=== PATIENT | male | born 1940 | race Caucasian/White ===

== ENCOUNTER → 2016-11-23 | Outpatient (CLI) | payer MEDICARE, BC ==
[~2016-11-23] MED LIST: ASPIRIN 32325 MG/TAB PO; ASPIRIN E.C. 8181 MG PO; ELIQUIS 5MG PO; GLUCOPHAGE500 MG/TAB PO; LIPITOR 40MG TA40 MG PO; LOPRESSOR 225 MG/TAB PO; OCUVITE1 TA1 PO; TENORMIN 2525 MG/TAB PO; THE MEDICINE S200 M2 PO; TRILIPIX 135MG PO; ZESTRIL40 MG PO; ZETIA 10MG TAB10 MG PO; ZOCOR 80MG80 MG PO
== END ==
LOC: COL.VAS 12:32
DX: I08.0 Rheumatic disorders of both mitral and aortic valves (principal); I48.91 Unspecified atrial fibrillation

== ENCOUNTER 2016-12-10 10:21 | Day surgery (SDC) | payer MEDICARE, BC ==
[2016-12-10] VITALS (8 sets, daily range): BP systolic 109–146; BP diastolic 68–98; PULSE 92–120; TEMP 98.1
[~2016-12-10] VITALS: Ht 177.8 cm; Wt 78.2 kg
[~2016-12-10 10:21] MED LIST changes: -ELIQUIS 5MG PO; -GLUCOPHAGE500 MG/TAB PO; -LOPRESSOR 225 MG/TAB PO; -OCUVITE1 TA1 PO; -THE MEDICINE S200 M2 PO
[2016-12-10] MEDS ORDERED: THE MEDICINE S200 M2 PO (11:04)
[2016-12-10] MEDS ORDERED: OCUVITE1 TA1 PO (11:04)
[2016-12-10] MEDS ORDERED: LIPITOR 40MG TA40 MG PO (11:05)
[2016-12-10] MEDS ORDERED: GLUCOPHAGE500 MG/TAB PO (11:06)
[2016-12-10 11:09] LABS: HEMATOCRIT 37.1 % (42.0-52.0); HEMOGLOBIN 12.2 g/dl (13.5-18.0); MEAN CELL VOLUME 94 fl (80.0-100.0); MEAN CORPUSCULAR HEMOGLOBIN 31 pg (27.0-31.0); MEAN CORPUSCULAR HGB CONC 33 g/dl (33.0-37.0); MEAN PLATELET VOLUME 9.6 fl (7.4-10.4); PLATELET COUNT 251 K/mm3 (130-400); RED BLOOD COUNT 3.94 M/mm3 (4.20-5.60); REDCELL DISTRIBUTION WIDTH-CV 14.2 % (11.5-14.5); WHITE BLOOD COUNT 6.6 K/mm3 (4.8-10.8)
[2016-12-10] MEDS ORDERED: LOPRESSOR 225 MG/TAB PO (11:10)
[2016-12-10] MEDS ORDERED: ELIQUIS 5MG PO (11:11)
[2016-12-10 11:14] LABS: INR 1.4 (0.8-3.0); PROTHROMBIN TIME 15.2 SECONDS (9.7-12.8)
[2016-12-10 11:23] LABS: CALCIUM 9.4 mg/dL (8.4-10.2); CREATININE, serum 1.11 mg/dL (0.66-1.25); POTASSIUM 4.4 mmol/L (3.4-5.0)
== END 2016-12-10 14:28 | disposition home or self-care (01) ==
LOC: COL.CAR 10:21
PROVIDERS: Internal Medicine Cardiovascular Disease
DX: I08.3 Combined rheumatic disorders of mitral, aortic and tricuspid valves (principal); I48.0 Paroxysmal atrial fibrillation; E11.9 Type 2 diabetes mellitus without complications; E78.5 Hyperlipidemia, unspecified; I25.2 Old myocardial infarction; I10 Essential (primary) hypertension; Q21.1 Atrial septal defect; I25.10 Atherosclerotic heart disease of native coronary artery without angina pectoris; Z95.1 Presence of aortocoronary bypass graft; Z79.01 Long term (current) use of anticoagulants; Z87.891 Personal history of nicotine dependence; Z82.49 Family history of ischemic heart disease and other diseases of the circulatory system; Z79.84 Long term (current) use of oral hypoglycemic drugs
CPT/HCPCS: J2250; J3010

== ENCOUNTER 2019-05-01 09:30 | Outpatient (CLI) | payer MEDICARE, BC ==
[2019-05-01] VITALS (7 sets, daily range): BP systolic 125–138; BP diastolic 71–98; PULSE 64–97; TEMP 97.1
[~2019-05-01] VITALS: Ht 177.8 cm; Wt 82.2 kg
[~2019-05-01 09:30] MED LIST changes: +BETAPACE 80MG80 MG PO; +ELIQUIS 5MG PO; +GLUCOPHAGE500 MG/TAB PO; +LOPRESSOR 225 MG/TAB PO; +OCUVITE1 TA1 PO; +THE MEDICINE S200 M2 PO
[2019-05-01] MEDS ORDERED: NORVASC2.5 MG PO (09:57)
[2019-05-01] MEDS ORDERED: COUMADIN 77.5 MG/TAB PO (09:59)
[2019-05-01] MEDS ORDERED: COUMADIN 5MG5 MG/TAB PO (10:02)
[2019-05-01 10:08] LABS: HEMOGLOBIN 11.9 g/dl (13.5-18.0); MEAN CELL VOLUME 92 fl (80.0-100.0); MEAN CORPUSCULAR HEMOGLOBIN 30 pg (27.0-31.0); MEAN CORPUSCULAR HGB CONC 33 g/dl (33.0-37.0); MEAN PLATELET VOLUME 9.5 fl (7.4-10.4); PLATELET COUNT 304 K/mm3 (130-400); RED BLOOD COUNT 3.95 M/mm3 (4.20-5.60); REDCELL DISTRIBUTION WIDTH-CV 14.1 % (11.5-14.5)
[2019-05-01 10:11] LABS: HEMATOCRIT 36.4 % (42.0-52.0)
[2019-05-01 10:16] LABS: INR 2.7 (0.8-3.0); PROTHROMBIN TIME 32.1 SECONDS (9.7-12.8)
[2019-05-01 10:21] LABS: CALCIUM 9.3 mg/dL (8.4-10.2); CREATININE, serum 0.96 (0.66-1.25); POTASSIUM 4.5 mmol/L (3.4-5.0)
[2019-05-01] MEDS ORDERED: MULTAQ400 MG PO (12:36)
--- NOTE | 2019-05-01 13:51 | NUR ---
Discharge instructions given to pt.Pt verbalizes understanding.INT removed,catheter tip intact.Pt escorted out via wheelchair by this nurse.
== END 2019-05-01 13:56 | disposition home or self-care (01) ==
LOC: COL.RAD 09:30
PROVIDERS: Internal Medicine Cardiovascular Disease
DX: I48.19 Other persistent atrial fibrillation (principal)
CPT/HCPCS: J2704; J3010

== ENCOUNTER 2019-05-10 09:58 | Inpatient (IN) | payer MEDICARE, BC ==
[~2019-05-10] VITALS: Ht 177.8 cm; Wt 80.0 kg
[~2019-05-10 09:58] MED LIST changes: +COUMADIN 5MG5 MG/TAB PO; +COUMADIN 77.5 MG/TAB PO; +MULTAQ400 MG PO; +NORVASC2.5 MG PO
[2019-05-15 09:36] VITALS: BP 156/84; PULSE 74; TEMP 97.8
--- NOTE | 2019-05-15 10:00 | NUR ---
Patient to room 317, walked independently to room with admit staff. Oriented patient to room, bed and call light. A&Ox4. No further needs expressed from patient. Call light within reach
[2019-05-15 10:27] LABS: BASO % 0.6 % (0.0-2.0); EOS # 0.1 (0.0-0.7); EOS % 1.2 % (0-4.0); GRAN # 4.8 (1.4-6.5); GRAN % 68.5 % (42.2-75.2); HEMATOCRIT 37.1 % (42.0-52.0); LYMPH # 1.3 (1.2-3.4); LYMPH % 18.2 % (20.0-51.0); MEAN CELL VOLUME 92 fl (80.0-100.0); MEAN CORPUSCULAR HEMOGLOBIN 30 pg (27.0-31.0); MEAN CORPUSCULAR HGB CONC 32 g/dl (33.0-37.0); MEAN PLATELET VOLUME 9.7 fl (7.4-10.4); MONO # 0.8 (0.1-0.6); MONO % 11.1 % (1.7-9.3); PLATELET COUNT 284 K/mm3 (130-400); RED BLOOD COUNT 4.02 M/mm3 (4.20-5.60); REDCELL DISTRIBUTION WIDTH-CV 14.1 % (11.5-14.5)
[2019-05-15 10:40] LABS: ALBUMIN 4.4 gm/dL (3.5-5.0); BILIRUBIN,TOTAL 0.5 mg/dL (0.0-1.0); CALCIUM 9.4 mg/dL (8.4-10.2); CREATININE, serum 1.04 (0.66-1.25); POTASSIUM 4.5 mmol/L (3.4-5.0); TOTAL PROTEIN 7.7 gm/dL (6.4-8.2)
[2019-05-15 10:45] LABS: INR 2.9 (0.8-3.0); PROTHROMBIN TIME 34.7 SECONDS (9.7-12.8)
[2019-05-15 11:32] VITALS: BP 127/62; PULSE 52; TEMP 98.4
[2019-05-15 16:35] VITALS: BP 143/73; PULSE 52; TEMP 97.8
--- NOTE | 2019-05-15 18:04 | NUR ---
Report given to Belem MCCULLOUGH
[2019-05-15 19:35] VITALS: BP 149/66; PULSE 54; TEMP 98.7
--- NOTE | 2019-05-15 20:30 | NUR ---
Initial shift assessment done- Tele on, denies any pain/SOB, VSS, UP ad stephanie in room- no requests-
--- NOTE | 2019-05-15 21:23 | NUR ---
Notified JAMEL Agarwal of low HR 48 via manual palipation.
--- NOTE | 2019-05-15 23:00 | NUR ---
Tele calling- states heart rate 41-43/min, pt assymptomatic- sleeping, Dr. Burdick called- tele parameters changed from 45 to 40/min
[2019-05-15 23:28] VITALS: BP 155/74; PULSE 49; TEMP 98.4
[2019-05-16 03:44] VITALS: BP 152/66; PULSE 50; TEMP 98
--- NOTE | 2019-05-16 06:39 | NUR ---
Quiet night- Tele on,, heart rate 40-45 most of the night- denies any pain/dizziness/SOB, VSS
[2019-05-16 06:49] LABS: BASO % 0.7 % (0.0-2.0); EOS # 0.1 (0.0-0.7); EOS % 2.2 % (0-4.0); GRAN # 3.7 (1.4-6.5); GRAN % 61.7 % (42.2-75.2); HEMOGLOBIN 11.7 g/dl (13.5-18.0); LYMPH # 1.3 (1.2-3.4); LYMPH % 21.7 % (20.0-51.0); MEAN CELL VOLUME 94 fl (80.0-100.0); MEAN CORPUSCULAR HEMOGLOBIN 30 pg (27.0-31.0); MEAN CORPUSCULAR HGB CONC 32 g/dl (33.0-37.0); MEAN PLATELET VOLUME 10.1 fl (7.4-10.4); MONO # 0.8 (0.1-0.6); MONO % 13.4 % (1.7-9.3); PLATELET COUNT 274 K/mm3 (130-400); REDCELL DISTRIBUTION WIDTH-CV 14.2 % (11.5-14.5)
[2019-05-16 06:51] LABS: HEMATOCRIT 36.5 % (42.0-52.0)
[2019-05-16 06:56] LABS: CALCIUM 9.4 mg/dL (8.4-10.2); CREATININE, serum 1.06 (0.66-1.25); INR 2.4 (0.8-3.0); POTASSIUM 4.5 mmol/L (3.4-5.0); PROTHROMBIN TIME 29.3 SECONDS (9.7-12.8)
--- NOTE | 2019-05-16 09:11 | NUR ---
Patient had cup of coffee with breakfast today. Called Dr. Simon, will do PFT tomorrow morning. Patient given instruction. Quoc Colon, SUPERVISOR POWDERED SUGAR
[2019-05-16 09:25] VITALS: BP 163/65; PULSE 58; TEMP 98.3
[2019-05-16 12:39] VITALS: BP 153/60; PULSE 50; TEMP 97.8
--- NOTE | 2019-05-16 14:23 | NUR ---
SW met with the patient to discuss discharge plan. The patient lives in [place] with his , Chaya (ph#[phone]). He reports independence with ADLs and has a CPAP. The patient's PCP is Dr. Chey Ramirez and he receives his medications at [facility]. He reports no difficulties obtaining his meds. The patient does not have advanced directives in EMR, but he states that he thinks that he has them completed and that his son, Ciaran, would be his DPOA-HC. The patient plans to return home with his upon discharge. No additional needs at this time.
--- NOTE | 2019-05-16 17:17 | NUR ---
Pt doing well, ambulating halls. Pt denies pain at this time. Pt states he hasn't had a BM today, he did have one yesterday. Requested MOM. Administered per MAR. No other concerns at this time.
[2019-05-16 17:30] VITALS: BP 133/63; PULSE 49; TEMP 97.9
[2019-05-16 20:00] VITALS: BP 137/61; PULSE 59; TEMP 98.3
--- NOTE | 2019-05-16 21:00 | NUR ---
Patient assessed at this time. Alert and oriented x 4, and able to make needs known. Denies ahving pain and discomfort. Peripheral IV to rigth forearm flushed. Site without redness, warmth, swelling, and pain. Denies SOB and dypsnea. LS CTA in upper lobes, diminished in lower lobes. HR-bradycardia, murmur present. Telmetry: sinus jin. Capillary refill less than 3 seconds. Non-tenting skin turgor. BSAx4. Abdomen soft and non-tender. No edema. Voices no questions, needs, or concerns at this time. Resting in bed with call light within reach.
--- NOTE | 2019-05-16 22:10 | NUR ---
Telemetry called and stated that HR was sustaining around 35. Called Dr. Silvestre, on-call tip cutter. Patient asymptomatic. New order to continue to monitor. Asked if he still wanted to be notified if HR was less than 40 per current orders. New order to call if less than 30. Updated order.
[2019-05-17] VITALS (7 sets, daily range): BP systolic 126–164; BP diastolic 50–67; PULSE 42–106; TEMP 97.7–98.1
--- NOTE | 2019-05-17 06:40 | NUR ---
Patient has been resting in bed with CPAP. Has denied having pain and discomfort. Voices no questions, needs, or concerns at this time. Call light is within reach.
[2019-05-17 06:44] LABS: BASO % 0.7 % (0.0-2.0); EOS # 0.2 (0.0-0.7); EOS % 2.6 % (0-4.0); GRAN # 3.6 (1.4-6.5); GRAN % 62.2 % (42.2-75.2); HEMOGLOBIN 11.5 g/dl (13.5-18.0); LYMPH # 1.3 (1.2-3.4); LYMPH % 21.9 % (20.0-51.0); MEAN CELL VOLUME 92 fl (80.0-100.0); MEAN CORPUSCULAR HEMOGLOBIN 30 pg (27.0-31.0); MEAN CORPUSCULAR HGB CONC 32 g/dl (33.0-37.0); MEAN PLATELET VOLUME 10.1 fl (7.4-10.4); MONO # 0.7 (0.1-0.6); MONO % 12.3 % (1.7-9.3); PLATELET COUNT 255 K/mm3 (130-400); RED BLOOD COUNT 3.88 M/mm3 (4.20-5.60); REDCELL DISTRIBUTION WIDTH-CV 14.2 % (11.5-14.5)
[2019-05-17 06:57] LABS: INR 2.3 (0.8-3.0); PROTHROMBIN TIME 27.7 SECONDS (9.7-12.8)
[2019-05-17 06:59] LABS: CALCIUM 9.2 mg/dL (8.4-10.2); CREATININE, serum 1.06 (0.66-1.25); MAGNESIUM 2.1 mg/dL (1.6-2.3); POTASSIUM 4.8 mmol/L (3.4-5.0)
[2019-05-17 07:06] LABS: HEMATOCRIT 35.8 % (42.0-52.0)
--- NOTE | 2019-05-17 07:31 | NUR ---
patient off the floor for PFT's
--- NOTE | 2019-05-17 09:58 | NUR ---
Assessment completed, alert/oriented, vital signs stable, denies chest pain or discomfort, heart regular/ Sinus jin on tele, lungs CTA/ no resp.difficulty, patient has been down to cardiopulmonary for PFT's this morning, a.m meds given, sitting up eating breakfast and denies other needs at this time
--- NOTE | 2019-05-17 21:20 | NUR ---
Pt presents sitting in bedside chair with a friend present. Pt is A&Ox4, laughing and joking with this financial writer. Pt presents with no s/s of distress noted. Pt is knowledgable of how to use call light and has a beverage on his bedside table. Will continue to monitor.
--- NOTE | 2019-05-17 23:50 | NUR ---
Pt noted to be wearing his CPAP while resting in bed with eyes closed
[2019-05-18] VITALS (7 sets, daily range): BP systolic 121–153; BP diastolic 56–62; PULSE 42–100; TEMP 97.8–98.6
--- NOTE | 2019-05-18 00:10 | NUR ---
Pt resting in bed and opens his eyes as this television script writer enter the room. Pt is asymptomatic with bradycardia and no s/s of distress noted.
--- NOTE | 2019-05-18 05:51 | NUR ---
Pt has remained in bed with his cpap in place. When this investment underwriter enters room Pt opens eyes and appropriately answers questions. Pt denies pain or discomfort and presents with no s/s of distress noted. Call light is within reach and bedside table is at bedside and has reading materials and beverage within reach. Will continue to monitor.
[2019-05-18 06:50] LABS: BASO % 0.5 % (0.0-2.0); EOS # 0.1 (0.0-0.7); EOS % 2.2 % (0-4.0); GRAN # 3.9 (1.4-6.5); GRAN % 63.1 % (42.2-75.2); HEMATOCRIT 36.8 % (42.0-52.0); HEMOGLOBIN 11.9 g/dl (13.5-18.0); LYMPH # 1.4 (1.2-3.4); LYMPH % 22.3 % (20.0-51.0); MEAN CELL VOLUME 92 fl (80.0-100.0); MEAN CORPUSCULAR HEMOGLOBIN 30 pg (27.0-31.0); MEAN CORPUSCULAR HGB CONC 32 g/dl (33.0-37.0); MEAN PLATELET VOLUME 10.1 fl (7.4-10.4); MONO # 0.7 (0.1-0.6); MONO % 11.6 % (1.7-9.3); PLATELET COUNT 280 K/mm3 (130-400); REDCELL DISTRIBUTION WIDTH-CV 14.2 % (11.5-14.5)
[2019-05-18 06:55] LABS: INR 2.5 (0.8-3.0); PROTHROMBIN TIME 30.6 SECONDS (9.7-12.8)
[2019-05-18 07:07] LABS: CALCIUM 9.5 mg/dL (8.4-10.2); CREATININE, serum 1.18 (0.66-1.25); POTASSIUM 4.7 mmol/L (3.4-5.0)
--- NOTE | 2019-05-18 08:54 | NUR ---
NURSE IN TO ASSESS PATIENT. DENIES SHORTNESS OF BREATH, DIZZINESS, OR NUMBNESS/TINGLING. DENIES ANY NEASUEA/VOMITING. SITTING IN CHAIR AT THIS TIME WATCHING [employer] VIDEO AUTION. BREATHING AT EASE. DENIES ANY ABDOMENAL DISTENTION OR PAIN. VOIDING WITHOUT DIFFICULTY. INDEPENDENT IN ROOM AND DOES HYGIENE ESSENTIALS BY SELF. MURMUR PRESENT, RUNNING SINUS BRADYCARDIA AT THIS TIME IN THE 50'S. S1 & S2 AUDIBLE. LUNG SOUNDS CLEAR ON INSPIRATION/EXPIRATION IN ALL CALIX.
--- NOTE | 2019-05-18 10:38 | NUR ---
Tele called about 5beat run of Vtach in pt about 30 min ago. Raw Products Director notified, will be up to see pt. Pt is sitting in recliner, asymptomatic, visiting with family/friends at this time. No other concerns noted.
--- NOTE | 2019-05-18 11:50 | NUR ---
First visit from the loss prevention specialist. No needs right now.
--- NOTE | 2019-05-18 13:58 | NUR ---
The patient is to tentatively discharge back home with his tomorrow, 05/19. SW presented and explained the IM form to the patient. The patient verbalized understanding, signed, and he was provided a copy. No additional needs at this time.
--- NOTE | 2019-05-18 16:10 | NUR ---
PATIENT UP WALKING HALLS AT THIS TIME. TOOK A SHOWER INDEPENDENTLY EARLIER TODAY AND DID ALL HIS HYGIENE MEASURES. NO OTHER CHANGES BESIDES HIS AMIODARNE WAS SWITCHED TO BID. DENIES ANY SHORTNESS OF BREATH, DIZZINESS, NAUSEA, OR VOMITING. SEVERAL VISITORS HAVE BEEN IN TO VISIT PATIENT TODAY. DOCTOR TALKED ABOUT DISCHARGE ON 05-19-19 IF NOTHING NEW ARISES. PATIENT IS DOING VERY WELL.
[2019-05-19 01:02] VITALS: BP 134/64; PULSE 43; TEMP 98
--- NOTE | 2019-05-19 02:03 | NUR ---
Pt report received at shift change with meet and greet performed. Pt is in good spirits with no complaints of pain or discomfort. Pt denies needs/wants at this time. Pt states that he is going to ambulate down the [place]dez for exercise and has been noted to do so periodically throughout the shift. Pt is knowledgeable of how to use call light and has been noted to be watching tv or reading during the shift. Pt remains in stable condition at this time with no s/s of distress noted. Will continue to monitor.
--- NOTE | 2019-05-19 02:32 | NUR ---
Pt resting in bed with CPAP on and eyes closed with no s/s of distres noted.
[2019-05-19 05:13] VITALS: BP 154/62; PULSE 49; TEMP 98.2
[2019-05-19 06:21] LABS: BASO # 0.1 (0.0-0.2); BASO % 0.7 % (0.0-2.0); EOS # 0.2 (0.0-0.7); EOS % 2.7 % (0-4.0); GRAN # 4.2 (1.4-6.5); GRAN % 59.6 % (42.2-75.2); HEMATOCRIT 38.3 % (42.0-52.0); HEMOGLOBIN 12.4 g/dl (13.5-18.0); LYMPH # 1.7 (1.2-3.4); MEAN CELL VOLUME 93 fl (80.0-100.0); MEAN CORPUSCULAR HEMOGLOBIN 30 pg (27.0-31.0); MEAN CORPUSCULAR HGB CONC 32 g/dl (33.0-37.0); MEAN PLATELET VOLUME 10.1 fl (7.4-10.4); MONO # 0.9 (0.1-0.6); MONO % 12.3 % (1.7-9.3); PLATELET COUNT 297 K/mm3 (130-400); RED BLOOD COUNT 4.13 M/mm3 (4.20-5.60); REDCELL DISTRIBUTION WIDTH-CV 14.3 % (11.5-14.5)
[2019-05-19 06:32] LABS: CALCIUM 9.7 mg/dL (8.4-10.2); CREATININE, serum 1.15 (0.66-1.25); POTASSIUM 4.7 mmol/L (3.4-5.0)
[2019-05-19 06:39] LABS: INR 2.6 (0.8-3.0)
[2019-05-19 09:50] VITALS: BP 133/50; PULSE 44; TEMP 97.7
[2019-05-19] MEDS ORDERED: PACERONE200 MG PO (11:23)
--- NOTE | 2019-05-19 11:26 | NUR ---
ASSESSED PATIENT AROUND [id number] WHERE HE WAS SITTING IN HIS CHAIR WITH NO COMPLAINTS. THIS NURSE AND I DISCUSSED HIS MORNING MEDICATIONS. NO COMPLAINTS OF DIZZINESS, NAUSEA, VOMITING, OR DIZZINESS. NO COMPLAINTS OF PALPITATIONS, SHORTNESS OF BREATH, OR DIZZINESS. PATIENT IS ANTICIPATING A DISCHARGE SOMETIME TODAY.
--- NOTE | 2019-05-19 12:41 | NUR ---
Patient discharged home at 1215, was assisted to private vehicle via wheelchair. Personal belongings with patient.
== END 2019-05-19 12:15 | disposition home or self-care (01) | DRG 309 ==
LOC: MEDICAL 05-15 09:19
PROVIDERS: ADMIT Internal Medicine Cardiovascular Disease
DX: I48.0 Paroxysmal atrial fibrillation (principal); Q21.1 Atrial septal defect; I25.10 Atherosclerotic heart disease of native coronary artery without angina pectoris; I08.0 Rheumatic disorders of both mitral and aortic valves; I10 Essential (primary) hypertension; E78.5 Hyperlipidemia, unspecified; G47.33 Obstructive sleep apnea (adult) (pediatric); E11.9 Type 2 diabetes mellitus without complications; I42.9 Cardiomyopathy, unspecified; I44.0 Atrioventricular block, first degree; I25.2 Old myocardial infarction; Z95.1 Presence of aortocoronary bypass graft

== ENCOUNTER 2019-10-03 10:47 | Outpatient (CLI) | payer MEDICARE, BC ==
[~2019-10-03] VITALS: Ht 177.8 cm; Wt 78.9 kg
[~2019-10-03 10:47] MED LIST changes: +PACERONE200 MG PO
[2019-10-03 11:00] VITALS: BP 166/83; PULSE 58; TEMP 97.2
[2019-10-03] MEDS ORDERED: PACERONE100 MG PO (11:12)
[2019-10-03] MEDS ORDERED: CEPHALEXIN500 M1 PO (12:58)
[2019-10-03 13:20] VITALS: BP 161/79; PULSE 62; TEMP 97.2
--- NOTE | 2019-10-03 13:20 | NUR ---
Discharge instructions given. Ambulated with pt/ to private car
== END 2019-10-03 13:21 | disposition home or self-care (01) ==
LOC: COL.CAR 10:47
DX: I48.0 Paroxysmal atrial fibrillation (principal); I25.10 Atherosclerotic heart disease of native coronary artery without angina pectoris; I25.2 Old myocardial infarction; Z95.1 Presence of aortocoronary bypass graft; I10 Essential (primary) hypertension; E78.2 Mixed hyperlipidemia; I08.0 Rheumatic disorders of both mitral and aortic valves; Q21.1 Atrial septal defect

== ENCOUNTER 2019-12-19 07:36 | Day surgery (SDC) | payer MEDICARE, BC ==
[2019-12-19] VITALS (10 sets, daily range): BP systolic 106–152; BP diastolic 51–78; PULSE 52–69; TEMP 97.8–98.5
[~2019-12-19] VITALS: Wt 80.3 kg
[~2019-12-19 07:36] MED LIST changes: +CEPHALEXIN500 M1 PO; +PACERONE100 MG PO
[2019-12-19] MEDS ORDERED: NORVASC 10MG10 MG PO (08:19)
[2019-12-19] MEDS ORDERED: PACERONE100 MG PO (08:19)
[2019-12-19] MEDS ORDERED: ASPIRIN E.C. 8181 MG PO (08:20)
[2019-12-19] MEDS ORDERED: LIPITOR 40MG TA40 MG PO (08:20)
[2019-12-19] MEDS ORDERED: COENZYME Q-10200 M1 PO (08:20)
[2019-12-19] MEDS ORDERED: METAMUCIL3.4 GM/DOS PO (08:21)
[2019-12-19] MEDS ORDERED: ZESTRIL40 MG PO (08:21)
[2019-12-19] MEDS ORDERED: GLUCOPHAGE500 MG/TAB PO (08:21)
[2019-12-19] MEDS ORDERED: TRILIPIX 135MG PO (08:22)
[2019-12-19] MEDS ORDERED: ONE-A-DAY ESSE1 EACH PO (08:22)
[2019-12-19 08:27] LABS: HEMOGLOBIN 11.6 g/dl (13.5-18.0); MEAN CELL VOLUME 86 fl (80.0-100.0); MEAN CORPUSCULAR HEMOGLOBIN 28 pg (27.0-31.0); MEAN CORPUSCULAR HGB CONC 33 g/dl (33.0-37.0); MEAN PLATELET VOLUME 9.5 fl (7.4-10.4); PLATELET COUNT 238 K/mm3 (130-400); RED BLOOD COUNT 4.14 M/mm3 (4.20-5.60); REDCELL DISTRIBUTION WIDTH-CV 17.1 % (11.5-14.5)
[2019-12-19 08:29] LABS: HEMATOCRIT 35.7 % (42.0-52.0); INR 1.1 (0.8-3.0); PROTHROMBIN TIME 11.9 SECONDS (9.7-12.8)
--- NOTE | 2019-12-19 08:39 | NUR ---
Initial visit; Patient and his thanked Thread Machine Operator for offering encouragement and prayer prior to his surgical procedure.
[2019-12-19 08:51] LABS: CREATININE, serum 1.17 (0.66-1.25); POTASSIUM 4.6 mmol/L (3.4-5.0)
--- NOTE | 2019-12-19 09:51 | NUR ---
SEE SLIME FOR ALL MEDICATION ADMINISTRATION TIMES AND INTRA AND POST SEDATION ASSESSMENT
--- NOTE | 2019-12-19 11:00 | NUR ---
Pt's take to floor by lab nurse staff following pt's pacemaker placement. Pt's belongings sent with .
--- NOTE | 2019-12-19 17:59 | NUR ---
Patient is alert and oriented. denies any pain. he was admitted for pacemaker placement and loop recorder remover. moderated swelling/edema around pacemaker placement. icepack applied. edema resolved. BP within limit. patient have >350 output. ambulate well independently. educated patient on left arm restriction post pacemaker placement. patient tolerate diet well.
--- NOTE | 2019-12-19 19:47 | NUR ---
Pt assessment completed and documented. Pt alert and oriented x4. Pt sitting up in recliner talking on his cell phone. Denies pain. Left arm in sling. Pressure dressing to left chest CDI with minimal swelling seen around dressing. Gauze dressing to mid chest CDI. INT to left hand patent and intact. Pt denies any other needs at this time. Call light within reach. Will continue to monitor.
[2019-12-20 01:03] VITALS: BP 116/64; PULSE 62; TEMP 97.4
[2019-12-20 03:55] VITALS: BP 147/65; PULSE 66; TEMP 98.1
--- NOTE | 2019-12-20 05:38 | NUR ---
Pt rested well overnight. Left arm in sling. Pressure dressing to left chest CDI. Gauze dressing to mid chest CDI. Complaints of incisional pain overnight however denied the need for pain medication. PT denies any other needs at this time. Call light within reach
--- NOTE | 2019-12-20 07:03 | NUR ---
Report given to JAMEL Altman
--- NOTE | 2019-12-20 07:12 | NUR ---
PATIENT ALERT AND ORIENTED, SITTING IN CHAIR. DENIES ANY PAIN. PATIENT VERBALIZE HE IS READY TO DISCHARGE. THE TWO DRESSING ON HIS CHEST APPEAR CLEAN AND INTACT.
[2019-12-20 07:26] LABS: BASO % 0.8 % (0.0-2.0); EOS # 0.1 (0.0-0.7); GRAN # 2.8 (1.4-6.5); GRAN % 56.7 % (42.2-75.2); HEMOGLOBIN 11.2 g/dl (13.5-18.0); LYMPH # 1.2 (1.2-3.4); LYMPH % 23.8 % (20.0-51.0); MEAN CELL VOLUME 87 fl (80.0-100.0); MEAN CORPUSCULAR HEMOGLOBIN 29 pg (27.0-31.0); MEAN CORPUSCULAR HGB CONC 33 g/dl (33.0-37.0); MONO # 0.8 (0.1-0.6); MONO % 17.1 % (1.7-9.3); PLATELET COUNT 235 K/mm3 (130-400); RED BLOOD COUNT 3.91 M/mm3 (4.20-5.60); REDCELL DISTRIBUTION WIDTH-CV 17.2 % (11.5-14.5)
[2019-12-20 07:27] LABS: HEMATOCRIT 34.1 % (42.0-52.0)
[2019-12-20 07:32] LABS: ALBUMIN 3.6 gm/dL (3.5-5.0); BILIRUBIN,TOTAL 0.3 mg/dL (0.0-1.0); CALCIUM 8.8 mg/dL (8.4-10.2); CREATININE, serum 1.13 (0.66-1.25); POTASSIUM 4.2 mmol/L (3.4-5.0); TOTAL PROTEIN 6.6 gm/dL (6.4-8.2)
[2019-12-20 07:48] VITALS: BP 120/60; PULSE 60; TEMP 98.3
[2019-12-20 07:59] LABS: THYROID STIMULATING HORMONE 1.76 uIU/mL (0.465-4.680)
--- NOTE | 2019-12-20 09:43 | NUR ---
GAURAV met with the patient to discuss discharge plan. The patient lives in [place] with his , Chaya (ph#[phone]). He reports independence with ADLs and does not have any DME. The patient's PCP is Dr. Shanelle Ramirez and he receives his medications at [facility]. He reports no difficulties obtaining his meds. The patient is not sure if he has advanced directives completed and was interested in obtaining a form for DPOA-HC. GAURAV provided. The patient plans to return home with his upon discharge. No additional needs at this time.
[2019-12-20] MEDS ORDERED: CEPHALEXIN500 M1 PO (11:02)
--- NOTE | 2019-12-20 12:22 | NUR ---
patient int discontinued. discharged with new order for cephalexin, information on how to maintain incision sites on mid-chest from loop recorder remover and left chest from Pacemaker placement. patient discharged home with .
== END 2019-12-20 12:00 | disposition home or self-care (01) ==
LOC: COL.CAR 07:36 → MEDICAL 11:58 → COL.CAR 12-20 12:00
PROVIDERS: Internal Medicine Cardiovascular Disease
DX: I49.5 Sick sinus syndrome (principal); I48.0 Paroxysmal atrial fibrillation; I25.10 Atherosclerotic heart disease of native coronary artery without angina pectoris; I08.0 Rheumatic disorders of both mitral and aortic valves; I25.2 Old myocardial infarction; Z95.1 Presence of aortocoronary bypass graft; G47.33 Obstructive sleep apnea (adult) (pediatric); E11.9 Type 2 diabetes mellitus without complications; Z86.718 Personal history of other venous thrombosis and embolism; Q21.1 Atrial septal defect; E78.2 Mixed hyperlipidemia
CPT/HCPCS: OP; J0690; J2250; J3010; J7030

== ENCOUNTER 2020-03-18 09:32 | Outpatient (CLI) | payer MEDICARE, BC ==
[~2020-03-18] VITALS: Ht 177.8 cm; Wt 81.9 kg
[~2020-03-18 09:32] MED LIST changes: +COENZYME Q-10200 M1 PO; +METAMUCIL3.4 GM/DOS PO; +NORVASC 10MG10 MG PO; +ONE-A-DAY ESSE1 EACH PO
[2020-03-18 10:19] VITALS: BP 123/68; PULSE 60; TEMP 98.1
[2020-03-18 10:43] LABS: HEMOGLOBIN 11.9 g/dl (13.5-18.0); MEAN CELL VOLUME 90 fl (80.0-100.0); MEAN CORPUSCULAR HEMOGLOBIN 30 pg (27.0-31.0); MEAN CORPUSCULAR HGB CONC 33 g/dl (33.0-37.0); MEAN PLATELET VOLUME 9.5 fl (7.4-10.4); PLATELET COUNT 256 K/mm3 (130-400); RED BLOOD COUNT 3.97 M/mm3 (4.20-5.60); REDCELL DISTRIBUTION WIDTH-CV 15.1 % (11.5-14.5)
[2020-03-18 10:46] LABS: HEMATOCRIT 35.9 % (42.0-52.0)
[2020-03-18 10:48] LABS: INR 1.1 (0.8-3.0); PROTHROMBIN TIME 11.9 SECONDS (9.7-12.8)
[2020-03-18] MEDS ORDERED: B-121000 MCG PO (10:58)
[2020-03-18 11:08] LABS: CALCIUM 9.2 mg/dL (8.4-10.2); CREATININE, serum 1.06 (0.66-1.25); POTASSIUM 4.6 mmol/L (3.4-5.0)
[2020-03-18 11:50] VITALS: BP 115/62; PULSE 60
[2020-03-18 12:05] VITALS: BP 125/62; PULSE 60
[2020-03-18 12:20] VITALS: BP 136/86; PULSE 60
== END 2020-03-18 12:40 | disposition home or self-care (01) ==
LOC: COL.RAD 09:32
PROVIDERS: Internal Medicine Cardiovascular Disease
DX: I48.19 Other persistent atrial fibrillation (principal)
CPT/HCPCS: J2704; J7030

== ENCOUNTER 2021-06-03 07:35 | Day surgery (SDC) | payer MEDICARE, BC ==
[2021-06-03] VITALS (7 sets, daily range): BP systolic 116–131; BP diastolic 59–89; PULSE 60–88; TEMP 98.6
[~2021-06-03] VITALS: Ht 177.8 cm; Wt 83.1 kg
[~2021-06-03 07:35] MED LIST changes: +B-121000 MCG PO; -ONE-A-DAY ESSE1 EACH PO
[2021-06-03 08:24] LABS: BASO % 0.7 % (0.0-2.0); EOS # 0.1 K/mm3 (0.0-0.7); EOS % 1.7 % (0.0-4.0); GRAN # 3.2 K/mm3 (1.4-6.5); GRAN % 59.5 % (42.2-75.2); HEMATOCRIT 40.1 % (42.0-52.0); HEMOGLOBIN 13.2 g/dl (13.5-18.0); LYMPH # 1.4 K/mm3 (1.2-3.4); MEAN CELL VOLUME 91 fl (80.0-100.0); MEAN CORPUSCULAR HEMOGLOBIN 30 pg (27-31); MEAN CORPUSCULAR HGB CONC 33 g/dl (33.0-37.0); MEAN PLATELET VOLUME 9.8 fl (7.4-10.4); MONO # 0.7 K/mm3 (0.1-0.6); MONO % 12.7 % (1.7-9.3); PLATELET COUNT 254 K/mm3 (130-400); RED BLOOD COUNT 4.39 M/mm3 (4.20-5.60); REDCELL DISTRIBUTION WIDTH-CV 14.2 % (11.5-14.5)
[2021-06-03 08:25] LABS: INR 1.6 (0.8-3.0); PROTHROMBIN TIME 18.2 SECONDS (9.7-12.8)
[2021-06-03 08:28] LABS: PARTIAL THROMBOPLASTIN TIME 40.2 SECONDS (26.0-37.0)
[2021-06-03] MEDS ORDERED: BETAPACE 120MG120 MG PO (08:31)
[2021-06-03] MEDS ORDERED: ELIQUIS 5MG PO (08:33)
[2021-06-03 08:35] LABS: CALCIUM 9.4 mg/dL (8.4-10.2); CREATININE, serum 1.03 mg/dL (0.72-1.25); MAGNESIUM 1.9 mg/dL (1.6-2.6); POTASSIUM 4.4 mmol/L (3.5-4.5)
[2021-06-03 08:55] LABS: THYROID STIMULATING HORMONE 1.06 uIU/mL (0.350-4.940)
--- NOTE | 2021-06-03 10:42 | NUR ---
Initial visit; Patient and his thanked Enterprise Software Engineer for offering comfort and prayer prior to his 'Procedure.'
--- NOTE | 2021-06-03 11:30 | NUR ---
Discharge instructions given to pt.Pt verbalizes understanding.INT removed,catheter tip intact.Pt escorted out via wheelchair by this nurse.
== END 2021-06-03 13:21 ==
LOC: COL.CAR 07:35
PROVIDERS: Internal Medicine Cardiovascular Disease
DX: I48.0 Paroxysmal atrial fibrillation (principal); I10 Essential (primary) hypertension; E78.5 Hyperlipidemia, unspecified; I25.10 Atherosclerotic heart disease of native coronary artery without angina pectoris; G47.33 Obstructive sleep apnea (adult) (pediatric); M19.90 Unspecified osteoarthritis, unspecified site; E11.9 Type 2 diabetes mellitus without complications; I25.2 Old myocardial infarction; Z95.0 Presence of cardiac pacemaker; Z86.718 Personal history of other venous thrombosis and embolism; Z79.01 Long term (current) use of anticoagulants; Z79.82 Long term (current) use of aspirin; Z79.899 Other long term (current) drug therapy; Z79.84 Long term (current) use of oral hypoglycemic drugs
CPT/HCPCS: J2704; J7120

== ENCOUNTER 2021-08-18 09:09 | Day surgery (SDC) | payer MEDICARE, BC ==
[~2021-08-18] VITALS: Ht 177.8 cm; Wt 81.5 kg
[~2021-08-18 09:09] MED LIST changes: +BETAPACE 120MG120 MG PO
[2021-08-18 09:46] VITALS: BP 124/89; PULSE 93; TEMP 98.4
[2021-08-18] MEDS ORDERED: COENZYME Q-10200 M1 PO (09:56)
[2021-08-18] MEDS ORDERED: MULTI VITAMINS1 TAB PO (10:00)
[2021-08-18 10:22] LABS: BASO % 0.7 % (0.0-2.0); EOS # 0.1 K/mm3 (0.0-0.7); EOS % 1.5 % (0.0-4.0); HEMATOCRIT 36.6 % (42.0-52.0); LYMPH # 1.1 K/mm3 (1.2-3.4); LYMPH % 18.7 % (20.0-51.0); MEAN CELL VOLUME 96 fl (80.0-100.0); MEAN CORPUSCULAR HEMOGLOBIN 31 pg (27-31); MEAN CORPUSCULAR HGB CONC 33 g/dl (33.0-37.0); MEAN PLATELET VOLUME 9.8 fl (7.4-10.4); MONO # 0.6 K/mm3 (0.1-0.6); MONO % 10.8 % (1.7-9.3); PLATELET COUNT 242 K/mm3 (130-400); RED BLOOD COUNT 3.83 M/mm3 (4.20-5.60); REDCELL DISTRIBUTION WIDTH-CV 15.2 % (11.5-14.5)
[2021-08-18 10:29] LABS: INR 1.6 (0.8-3.0)
[2021-08-18 10:32] LABS: PARTIAL THROMBOPLASTIN TIME 38.2 SECONDS (26.0-37.0)
[2021-08-18 10:36] LABS: CREATININE, serum 0.93 mg/dL (0.72-1.25); MAGNESIUM 1.9 mg/dL (1.6-2.6); POTASSIUM 4.3 mmol/L (3.5-4.5)
[2021-08-18 11:00] VITALS: BP 104/60; PULSE 69
[2021-08-18 11:00] LABS: THYROID STIMULATING HORMONE 0.668 uIU/mL (0.350-4.940)
[2021-08-18 11:15] VITALS: BP 109/91; PULSE 69
[2021-08-18 11:30] VITALS: BP 122/82; PULSE 69
[2021-08-18 11:45] VITALS: BP 119/76; PULSE 69
--- NOTE | 2021-08-18 12:10 | NUR ---
DC instructions were reviewed with pt and . Both expressed understanding. Pt has tolerated PO fluids without issue. He is steady on feet in room. INT DC'd with catheter intact. He is assisted out to 's car by wheelchair with belongings.
== END 2021-08-18 12:10 | disposition home or self-care (01) ==
LOC: COL.CAR 09:09
PROVIDERS: Internal Medicine Cardiovascular Disease
DX: I48.92 Unspecified atrial flutter (principal); I48.0 Paroxysmal atrial fibrillation; Z95.818 Presence of other cardiac implants and grafts; Z95.0 Presence of cardiac pacemaker; Z95.1 Presence of aortocoronary bypass graft; G47.33 Obstructive sleep apnea (adult) (pediatric)
CPT/HCPCS: J2704; J7030